=== PATIENT | female | born 1970 | race Caucasian/White ===

== ENCOUNTER 2018-04-12 20:16 | Emergency (ER) | payer BC, OTHER ==
[2018-04-12] MEDS ORDERED: SODIUM CHLORIDE 1,000 ML IV ONE (20:22)
--- NOTE | 2018-04-12 20:22 | PDOC ---
History of Present Illness - General History Source: Patient Exam Limitations: No Limitations - History of Present Illness Initial Comments: 04/12/18 21:41 The patient is a 48 year old female, with a significant PMH of a kidney stone ( 28 years ago), UTIs (last one 3 months ago) and anemia, who presents to the emergency department complaining of back pain that began 2 weeks ago. The patient states pain is located to the lower back near the coccyx region that radiates to the left thigh. Patient also mentions back pain is accompanied with burning and sharp left lower flank pain that started 5 day ago, mild relief with Tylenol. She endorses some nausea but denies any fevers, Denies chest pain, shortness of breath, headache and dizziness. Denies chills, nausea, vomit, diarrhea and constipation. Denies dysuria, frequency, urgency and hematuria. PAST MEDICAL HISTORY: Kidney stones and UTIs PAST SURGICAL HISTORY: no significant history FAMILY HISTORY: no pertinent history SOCIAL HISTORY: Pt lives with family and is employed. MEDICATIONS: reviewed ALLERGIES: gluten Adult ROS General: No fevers or chills, no weakness, no weight loss HEENT: No change in vision. No sore throat,. No ear pain CardioVascular: No chest pain or shortness of breath Respiratory:No cough, or wheezing. Gastrointestinal: no nausea, vomiting, diarrhea or constipation, No rectal bleeding Genitourinary: No dysuria, hematuria, or frequency Musculoskeletal: +back pain and flank pain Neurologic: No headache, vertigo, dizziness or loss of consciousness Psychiatric: nor depression Skin: No rashes or easy bruising Endocrine: no increased thirst or abnormal weight change Allergic: no skin or latex allergy All other systems reviewed and normal Adult Exam: General: Well-nourished well-developed individual, no acute distress HEENT: Throat: Normal, tonsils normal, no erythema or exudate Neck: Supple, no meningeal signs, no lymphadenopathy Eyes::Pupils equal reactive and round, extraocular motion intact Chest: Nontender to palpation Cardiac: S1-S2 normal, regular rate and rhythm, no murmurs rubs or gallops Respiratory: Lungs clear to auscultation bilateral Abdomen: +Tenderness on palpation to the left CVA and left flank of the abdomen. No guarding or rebound. Extremities: Warm, dry, no cyanosis, clubbing, or edema Skin: No rashes Neuro: Alert and oriented x3, nonfocal exam, grossly intact, normal gait Psych: Normal mood and affect <Parvez Peters - Last Filed: 04/12/18 21:40> - General History Source: Patient Exam Limitations: No Limitations - History of Present Illness Initial Comments: 04/12/18 21:37 A portion of this note was documented by scribe services under my direction. I have reviewed the details of the note, within reason, and agree with the documentation with the following case summary and management plan written by me. Patient treated in the ED. Nursing notes are reviewed and incorporated into the medical decision-making. Vital signs reviewed. Assessment plan: This is a 48-year-old female who comes in complaining of left flank and left lower back pain. Patient has a history of renal colic many years ago in the past. Patient denies any fevers or chills. Nausea, vomiting or diarrhea. We will initiate workup including CBC, comp, UA, CAT scan. We'll medicate for pain and reassess and reevaluate 22:30 CAT scan shows no acute renal stones there is some incidental findings but no hydronephrosis. Patient given copy of CAT scan and will follow-up with her primary care doctor <Idris De Jesus I - Last Filed: 04/12/18 22:44> - General Chief Complaint: Urinary Problem Stated Complaint: I THINK I HAVE A KIDNEY STONE Time Seen by Provider: 04/12/18 20:21 Past History <Parvez Peters - Last Filed: 04/12/18 21:40> - Past Medical History Anemia: Yes - Surgical History Abdominal Surgery: Yes (BTL) - Suicide/Smoking/Psychosocial Hx Smoking History: Never smoked Number of Cigarettes Smoked Daily: 0 Hx Alcohol Use: No <Idris De Jesus I - Last Filed: 04/12/18 22:44> - Past Medical History Allergies/Adverse Reactions: Allergies Allergy/AdvReac Type Severity Reaction Status Date / Time gluten Allergy Intermediate Verified 04/12/18 20:18 Home Medications: Ambulatory Orders Acetaminophen [Tylenol] 650 mg PO PRN 04/12/18 *Physical Exam - Vital Signs Last Vital Signs Temp Pulse Resp BP Pulse Ox 97.9 F 81 16 122/56 L 100 04/12/18 20:17 04/12/18 20:17 04/12/18 20:17 04/12/18 20:17 04/12/18 20:17 <Parvez Peters - Last Filed: 04/12/18 21:40> Moderate Sedation - Procedure Monitoring Vital Signs: Procedure Monitoring Vital Signs Temperature 97.9 F 04/12/18 20:17 Pulse Rate 81 04/12/18 20:17 Respiratory Rate 16 04/12/18 20:17 Blood Pressure 122/56 L 04/12/18 20:17 O2 Sat by Pulse Oximetry (%) 100 04/12/18 20:17 <Parvez Peters - Last Filed: 04/12/18 21:40> ED Treatment Course - LABORATORY CBC & Chemistry Diagram: 04/12/18 20:41 04/12/18 20:41 - ADDITIONAL ORDERS Additional order review: Laboratory Results 04/12/18 04/12/18 20:41 20:41 Sodium 135 L Potassium 3.9 Chloride 105 Carbon Dioxide 25 Anion Gap 5 L BUN 13 Creatinine 0.7 Creat Clearance w eGFR > 60 Random Glucose 98 Calcium 9.0 Total Bilirubin < 0.3 AST 38 H ALT 41 Alkaline Phosphatase 79 Total Protein 6.4 Albumin 4.0 Urine Color Yellow Urine Appearance Clear Urine pH 6.0 Ur Specific [place] <= 1.005 L Urine Protein Negative Urine Glucose (UA) Negative Urine Ketones Negative Urine Blood Trace-intact H Urine Nitrite Negative Urine Bilirubin Negative Urine Urobilinogen 0.2 Ur Leukocyte Esterase Negative Urine RBC 2-5 Urine WBC 0-2 Ur Epithelial Cells 1+ Urine Bacteria 1+ 04/12/18 20:41 RBC 4.82 MCV 71.9 L MCHC 30.9 L RDW 17.0 H MPV 11.1 Neutrophils % No Result Required. Lymphocytes % No Result Required. - Medications Given in the ED: ED Medications Discontinued Medications Generic Name Dose Route Start Last Admin Trade Name Freq PRN Reason Stop Dose Admin Sodium Chloride 1,000 mls @ 1,000 mls/hr 04/12/18 20:22 04/12/18 20:41 Normal Saline - IV 04/12/18 21:21 1,000 mls/hr .Q1H ONE Administration Ketorolac Tromethamine 60 mg 04/12/18 21:00 04/12/18 21:09 Toradol Injection - IM 04/12/18 21:01 Not Given ONCE ONE Ketorolac Tromethamine 30 mg 04/12/18 21:02 04/12/18 21:08 Toradol Injection - IVPUSH 04/12/18 21:03 30 mg ONCE ONE Administration Ondansetron HCl 4 mg 04/12/18 21:00 04/12/18 21:09 Zofran Injection IVPUSH 04/12/18 21:01 Not Given ONCE ONE <Parvez Peters - Last Filed: 04/12/18 21:40> - LABORATORY CBC & Chemistry Diagram: 04/12/18 20:41 04/12/18 20:41 <Idris De Jesus I - Last Filed: 04/12/18 22:44> *DC/Admit/Observation/Transfer - Attestations Scribe Attestion: 04/12/18 21:41 Documentation prepared by Parvez Peters, acting as medical instructor for Idris De Jesus MD. <Parvez Peters - Last Filed: 04/12/18 21:40> - Discharge Dispostion Decision to Admit order: No <Idris De Jesus I - Last Filed: 04/12/18 22:44> Diagnosis at time of Disposition: Left flank pain Low back pain Qualifiers: Chronicity: unspecified Back pain laterality: unspecified Sciatica presence: with sciatica Sciatica laterality: sciatica of left side Qualified Code(s): M54.42 - Lumbago with sciatica, left side - Discharge Dispostion Disposition: HOME Condition at time of disposition: Stable - Patient Instructions Additional Instructions: I'm sending a prescription to your pharmacy for a muscle relaxant. In addition to that a prescription for naproxen take naproxen 1 tablet twice a day take the muscle relaxant in the evening before you go to bed. Try to limited to the nighttime hours as it will make you drowsy Return to the emergency department immediately with ANY new, persistent or worsening symptoms. Continue any medications as previously prescribed by your physician. You should follow up with your primary doctor as soon as possible regarding today's emergency department visit. . Please make sure your doctor reviews the results of your emergency evaluation. Thank you for coming to the Emergency Department today for your care. It was a pleasure to see you today. Please note that your evaluation is INCOMPLETE until you follow-up with your doctor.
[2018-04-12 20:26] VITALS: BP 122/56; PULSE 81; TEMP 97.9; BMI 25.2
[2018-04-12 20:46] LABS: URINE APPEARANCE Clear; URINE BILIRUBIN Negative (NEGATIVE); URINE COLOR Yellow; URINE GLUCOSE (UA) Negative (NEGATIVE); URINE KETONE Negative (NEGATIVE); URINE LEUK ESTERASE Negative (NEGATIVE); URINE NITRITE Negative (NEGATIVE); URINE PROTEIN Negative (NEGATIVE); URINE UROBILINOGEN 0.2 (0.2-1.0)
[2018-04-12] MEDS ORDERED: ONDANSETRON 4 MG/2 ML VIAL IVPUSH ONE (21:00)
[2018-04-12] MEDS ORDERED: KETOROLAC TROMETHAMINE 60 MG/2 ML VIAL IM ONE (21:00)
[2018-04-12 21:01] LABS: HEMATOCRIT 34.7 % (32.4-45.2); HEMOGLOBIN 10.7 GM/dl (10.7-15.3); MCH 22.2 pg (25.7-33.7); MCHC 30.9 g/dl (32.0-36.0); MEAN CELL VOLUME 71.9 fl (80-96); MEAN PLT VOLUME 11.1 fl (7.5-11.1); PLATELET COUNT 311 K/MM3 (134-434); RBC 4.82 M/mm3 (3.60-5.2); WHITE BLOOD COUNT 9.9 K/mm3 (4.0-10.8)
[2018-04-12] MEDS ORDERED: KETOROLAC TROMETHAMINE 30 MG/1 ML VIAL IVPUSH ONE (21:02)
[2018-04-12] MEDS ORDERED: ONDANSETRON 4 MG/2 ML VIAL ONE (21:05)
[2018-04-12] MEDS ORDERED: KETOROLAC TROMETHAMINE 30 MG/1 ML VIAL ONE (21:05)
[2018-04-12 21:06] LABS: ALK PHOS 79 U/L (45-117); ANION GAP 5 MMOL/L (8-16); BLOOD UREA NITROGEN 13 mg/dl (7-18); CHLORIDE 105 mmol/L (98-107); CO2 25 mmol/L (21-32); CREATININE 0.7 mg/dl (0.55-1.3); GLUCOSE,RANDOM 98 mg/dl (74-106); POTASSIUM 3.9 mmol/L (3.5-5.1); SGOT/AST 38 U/L (15-37); SGPT/ALT 41 U/L (13-61); SODIUM 135 mmol/L (136-145); TOT PROT 6.4 g/dl (6.4-8.2)
[2018-04-12 21:08] LABS: BILIRUBIN,TOTAL < 0.3 mg/dl (0.2-1)
[2018-04-12 21:36] LABS: EPI CELLS 1+ /HPF; URINE BACTERIA 1+ /hpf (NEGATIVE); URINE WBC 0-2 (0-5)
[2018-04-12 22:16] LABS: ANISOCYTOSIS 1+; PLATELET ESTIMATE ADEQUATE
== END 2018-04-12 23:01 | disposition home or self-care (01) ==
LOC: FER 20:16
PROC: 3E0333Z Introduction of Anti-inflammatory into Peripheral Vein, Percutaneous Approach (ICD-10-PCS; principal; 2018-04-12)
PROC: 3E0337Z Introduction of Electrolytic and Water Balance Substance into Peripheral Vein, Percutaneous Approach (ICD-10-PCS; 2018-04-12)
DX: M54.42 Lumbago with sciatica, left side (principal)
CPT/HCPCS: 36415; 74176; 80053; 81003; 81015; 85025; 99282-25; J7030